=== PATIENT | female | born 2005 | race Caucasian/White ===

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

== ENCOUNTER 2023-05-10 18:17 | Outpatient (CLI) | payer MEDICAID ==
--- NOTE | 2023-05-10 19:36 | PROVIDER PROGRESS NOTE ---
- HPI Chief Complaint: Labor Current : Vital Signs Temperature 99.0 F 05/10/23 18:42 Heart Rate 100 05/10/23 18:42 Respiratory Rate 18 05/10/23 18:42 Blood Pressure 126/62 05/10/23 18:42 Temperature 99.0 F 05/10/23 18:42 Heart Rate 100 05/10/23 18:42 Respiratory Rate 18 05/10/23 18:42 Blood Pressure 126/62 05/10/23 18:42 O2 Saturation If not protocol: Oxygen Flow, liters/minute - Exam Patient is a G1, P0 at 25 and 5 weeks who has recently moved from [place]. She is complaining of a couple day history of cramping. She has also had increased vaginal discharge. She denies vaginal bleeding.Patient was recently in the ER for IV fluids. Ob history: G1: current Systems Lead history: denies history of STIs Med history: none NKDA medications: vitamins Surgical: abscess drainage on abdomen 2021 exam: Gen: NAD Abdomen: gravid, soft, non-tender FHT: +, too early for NST - Procedures Findings: gestational age too early for NST
[2023-05-10 19:52] LABS: RUPTURE OF MEMBRANES PLUS NEGATIVE (NEGATIVE)
[2023-05-10 20:04] LABS: BILIRUBIN,URINE NEGATIVE (NEGATIVE); GLUCOSE, URINE (UA) NEGATIVE (NEGATIVE); KETONES,URINE (UA) NEGATIVE (NEGATIVE); LEUKOCYTE ESTERASE, URINE MODERATE (NEGATIVE); NITRITE,URINE NEGATIVE (NEGATIVE); OCCULT BLOOD,URINE NEGATIVE (NEGATIVE); PH,URINE 7.5 PH (5.0-7.5); PROTEIN,URINE NEGATIVE (NEGATIVE); UROBILINOGEN,URINE 0.2 (NORMAL) E.U./dL (NORMAL)
[2023-05-10] MEDS ORDERED: BETAMETHASONE 30 MG/5 ML VIAL IM ONE (20:10)
[2023-05-10] MEDS ORDERED: LABETALOL 20 MG/4 ML SYRINGE IVP PRN (20:10)
[2023-05-10] MEDS ORDERED: MAGNESIUM SULFATE 4 GRAM 4 GM/50 ML BAG IV ONE (20:10)
[2023-05-10 20:12] LABS: CLARITY,URINE CLOUDY (CLEAR)
[2023-05-10 20:13] LABS: RBC,URINE 0-5 /HPF (0-5); SQUAMOUS EPITHELIAL CELL,UR MOD Squamous (<= Few)
[2023-05-10 20:14] LABS: BACTERIA,URINE Few /HPF (None Seen)
--- NOTE | 2023-05-10 20:18 | HISTORY & PHYSICAL EXAMINATION ---
Admit History - Visit Reason Visit Reason: Contractions - : 1 Parity: 0 Care: positive: Other Smoking Status: Never smoker - Mother's Labs Mother's Blood Type: positive: A Mother's RH: positive: Positive Rubella Status: positive: Immune - Other Maternal History Other Maternal History: Patient is a 18-year-old G1, P0 presenting at 26 weeks (EDC 08/18/2023 by ultraosund 01/03/2023) by first trimester ultrasound with contractions occurring every 5 minutes. Patient was recently evaluated at [place] emergency department and given IV fluids for dehydration about 4 days ago.She denies vaginal bleeding. She is complaining of increased mucous vaginal discharge. has been uncomplicated. - HPI Vital Signs Temperature 99.0 F 05/10/23 18:42 Heart Rate 100 05/10/23 18:42 Respiratory Rate 18 05/10/23 18:42 Blood Pressure 126/62 05/10/23 18:42 Temperature 99.0 F 05/10/23 18:42 Heart Rate 100 05/10/23 18:42 Respiratory Rate 18 05/10/23 18:42 Blood Pressure 126/62 05/10/23 18:42 O2 Saturation If not protocol: Oxygen Flow, liters/minute Meds/Allgy - Home Medications Home Medications: Ambulatory Orders Medication Instructions Recorded Confirmed Cephalexin Suspension [Keflex] 500 mg PO TID 7 Days #200 ml 08/13/21 HYDROcod/ACETAM 5/325 [[place] 5/325] 1 ea PO Q6H PRN #12 tablet 08/13/21 Lidocaine Viscous 2% [Xylocaine 5 ml PO Q4H PRN #100 ml 08/13/21 Viscous 2%] dexAMETHasone [Decadron] 4 mg PO DAILY #5 tablet 08/13/21 - Allergies Allergies/Adverse Reactions: Allergies Allergy/AdvReac Type Severity Reaction Status Date / Time No Known Drug Allergies Allergy Verified 10/02/20 16:53 Review of Systems - All Other Systems All Other Systems: reports: Reviewed and negative (Patient is a 18-year-old G1, P0 at 26 weeks by first trimester ultrasound presenting with cramping that has been occurring for the last 5 days. Patient was evaluated 4 days ago at [place] and was given IV fluids for rehydration.She is also complaining of increased vaginal discharge.) Physical - Abdominal Exam Vital Signs: Temp Pulse Resp BP Pulse Ox O2 Flow Rate 99.0 F 100 18 126/62 05/10/23 18:42 05/10/23 18:42 05/10/23 18:42 05/10/23 18:42 Contraction Frequency (min/apart): every 5 minutes Contraction Intensity: positive: Mild - Monitoring Heart Rate Baseline: appropriate for gestationa age - Presentation Presentation: positive: Vertex - Vaginal Exam Membranes: positive: Membranes intact Dilation (in cm): 3 Effacement (%): 80 - Other Notes Labor Progress Note/Additional Text: Ultrasound: cephalic, cervical dilation Cervical exam: 380/-3 Gen: NAD Pulm: CTA bilaterally Cardiac: RRR Abdomen: soft, nontender Plan for Labor - Plan For Labor I expect patient to be DC'd or transferred within 96 hours.: Yes Plan for Labor: 1. labor -GBS pending, GC/CT pending, U/A pending -Magnesium sulfate for neuroprotection - steroids -transfer
[2023-05-10] MEDS ORDERED: LACTATED RINGERS 1,000 ML ONE (20:31)
[2023-05-10] MEDS ORDERED: AMPICILLIN 2 GM in SODIUM CHLORIDE 0.9% MINIBAG 100 ML IV ONE (20:49)
[2023-05-10 20:52] LABS: BASOPHILS # (AUTO) 0.1 10^3/uL (0.0-0.1); BASOPHILS % (AUTO) 0.3 %; EOSINOPHILS # (AUTO) 0.1 10^3/uL (0.0-0.7); EOSINOPHILS % (AUTO) 0.4 %; HCT - HEMATOCRIT 34.4 % (37.0-47.0); LYMPHOCYTES # (AUTO) 2.5 10^3/uL (1.5-3.5); LYMPHOCYTES % (AUTO) 13.9 %; MEAN CORPUSCULAR HGB CONC 34.9 g/dL (32.0-36.0); MEAN CORPUSCULAR VOLUME 91.7 fL (81.0-99.0); MEAN PLATELET VOLUME 10.5 fL (7.9-10.8); MONOCYTES # (AUTO) 1.1 10^3/uL (0.0-1.0); MONOCYTES % (AUTO) 5.9 %; NEUTROPHILS # (AUTO) 14.1 10^3/uL (1.5-6.6); NEUTROPHILS % (AUTO) 79.1 %; PLT - PLATELET COUNT 242 10^3/uL (130-450); RED BLOOD COUNT 3.75 10^6/uL (4.20-5.40); RED CELL DISTRIBUTION WIDTH 12.2 % (12.0-15.0); WHITE BLOOD COUNT 17.9 x10^3/uL (4.8-10.8)
[2023-05-10] MEDS ORDERED: MAGNESIUM SULFATE IN WATER 20 GM/500 ML IV.SOLN IV SCH (20:57)
[2023-05-10] MEDS ORDERED: LACTATED RINGERS 1,000 ML IV SCH (21:00)
[2023-05-10] MEDS ORDERED: AMPICILLIN 2 GM VIAL IV ONE (21:06)
[2023-05-10 21:09] LABS: ALBUMIN 3.6 g/dL (3.2-5.5); ALBUMIN/GLOBULIN RATIO 1.2 (1.0-2.2); BILIRUBIN,TOTAL 0.3 mg/dL (0.2-1.0); CREATININE 0.4 mg/dL (0.6-1.3); POTASSIUM 3.4 mmol/L (3.5-4.5); TOTAL PROTEIN 6.7 g/dL (6.4-8.9)
[2023-05-10 21:13] LABS: BACTERIAL VAGINOSIS DNA NEGATIVE (NEGATIVE); CANDIDA GLABRATA DNA NEGATIVE (NEGATIVE); CANDIDA GROUP DNA NEGATIVE (NEGATIVE); CANDIDA KRUSEI DNA NEGATIVE (NEGATIVE); TRICHOMONAS VAGINALIS DNA NEGATIVE (NEGATIVE)
[2023-05-10 22:42] LABS: CHLAMYDIA TRACHOMATIS DNA NEGATIVE (NEGATIVE); NEISSERIA GONORRHOEAE DNA NEGATIVE (NEGATIVE); TRICHOMONAS VAGINALIS DNA NEGATIVE (NEGATIVE)
[2023-05-10 23:22] VITALS: BP 139/82; O2SAT 99
[2023-05-11] MEDS ORDERED: AMPICILLIN 1 GM in SODIUM CHLORIDE 0.9% MINIBAG 100 ML IV SCH (01:00)
== END 2023-05-10 21:20 | disposition short-term general hospital (02) ==
LOC: WFO 18:17 → FBP 18:19 → WFO 21:20
PROVIDERS: ATTEND Obstetrics & Gynecology Obstetrics
DX: O60.02 Preterm labor without delivery, second trimester (principal); Z3A.26 26 weeks gestation of pregnancy
CPT/HCPCS: 36415; 80053; 81001; 81514; 84112; 85025; 86850; 86900; 86901; 87491; 87591; 87661; 87797; 96365; 96372; 99215; J7120; 81003; 87081; 87086; J3475